=== PATIENT | male | born 1940 | race Caucasian/White ===

== ENCOUNTER 2019-02-04 10:26 | Emergency (ER) | payer MEDICARE, OTHER, SELFPAY ==
[2019-02-04 10:39] VITALS: BP 184/86; PULSE 86; RESP 18; TEMP 36.4; O2SAT 96
--- NOTE | 2019-02-04 11:01 | DI.RAD.S_ITS ---
PROCEDURE: XR CHEST 1V INDICATIONS: chest pain TECHNIQUE: One view of the chest was acquired. COMPARISON: None. FINDINGS: Surgical changes and devices: None. Lungs and pleura: Lungs are clear. No pleural effusions or pneumothorax. Mediastinum: Mediastinal contours appear normal. Heart size is normal. Bones and chest wall: No suspicious bony lesions. Overlying soft tissues appear unremarkable. IMPRESSION: No definite acute cardiopulmonary process is evident. Dictated by: Lonnie Sanders M.D. on 02/04/2019 at 11:02 Approved by: Lonnie Sanders M.D. on 02/04/2019 at 11:03
[2019-02-04 11:02] VITALS: BP 160/85; PULSE 57; RESP 14; O2SAT 96
[2019-02-04 11:09] LABS: Add Manual Diff / Slide Review NO; Basophils Absolute Auto 0 /uL (0-100); Basophils Percent Auto 0.5 % (0-2); Eosinophils Absolute Auto 100 /uL (0-450); Hematocrit 45.1 % (41-53); Hemoglobin 15.6 g/dL (13.5-17.5); Lymphocytes Absolute Auto 700 /uL (1100-4500); Lymphocytes Percent Auto 7.3 % (25-40); Mean Corpuscular HGB Conc 34.7 % (30-36); Mean Corpuscular Hemoglobin 31.7 PG (26-34); Mean Corpuscular Volume 91.2 fL (80-100); Monocytes Absolute Auto 500 /uL (0-900); Neutrophils Absolute Auto 7800 /uL (1500-7000); Neutrophils Percent Auto 86.2 % (50-75); Platelet Count 212 X10^3/uL (150-400); Red Blood Cell Count 4.94 X10^6/uL (4.5-5.9); Red Cell Distribution Width 12.3 % (11.6-14.8)
[2019-02-04 11:14] LABS: INR 0.9 (0.9-1.3); Prothrombin Time 10.3 SECONDS (10.1-12.7)
[2019-02-04 11:17] LABS: PTT Partial Thromboplastin Tim 28 SECONDS (26.4-36.2)
[2019-02-04 11:22] LABS: Alanine Aminotransferase 20 IU/L (21-72); Albumin 4.1 g/dL (3.5-5.0); Albumin Globulin Ratio 1.3 (1.0-2.8); Alkaline Phosphatase 82 U/L (38-126); Aspartate Aminotransferase 29 IU/L (17-59); BUN Creatinine Ratio 18.8 (6-22); Bilirubin Total 1.3 mg/dL (0.2-1.3); Blood Urea Nitrogen 15 mg/dL (9-20); Calcium 9.5 mg/dL (8.4-10.2); Carbon Dioxide 30 mmol/L (22-32); Chloride 101 mmol/L (98-107); Creatine Kinase 63 U/L (55-170); Estimated Glomerular Filt Rate > 60.0 mL/min (>60); Globulin 3.1 g/dL (1.7-4.1); Glucose 109 mg/dL (80-110); Lipase 57 U/L (23-300); Sodium 137 mmol/L (137-145); Total Protein 7.2 g/dL (6.3-8.2)
[2019-02-04 11:27] LABS: HEMOLYSIS 83 (0-50)
[2019-02-04 11:30] VITALS: BP 159/96; PULSE 68; RESP 12; O2SAT 96
--- NOTE | 2019-02-04 11:49 | ED_ITS ---
HPI - Dizziness General Chief Complaint: Dizziness Stated Complaint: dizzy,high blood pressure,'sick' Time Seen by Provider: 02/04/19 11:48 Source: patient Mode of arrival: ambulatory Limitations: no limitations History of Present Illness HPI Narrative: 78-year-old male comes in with complaint of dizziness. Patient states he woke up this morning and was very dizzy. He felt like the world was sort of spinning. He states that he feels off balance and when he got up to let EMS in the door he sort of had to hang onto the wall or bounce around. He denies any vision changes. He has a mild headache that started about an hour ago. His symptoms started several hours before. He has some nausea and vomiting this morning. He does not feel nauseated currently. No chest pain, no shortness of breath or abdominal pain. Sometimes have some lower back discomfort. No numbness, no weakness or difficulty with speech. He had similar symptoms about 4:00 a.m. in the morning a couple nights before and he states he went back to bed and resolved. Today it is better at this time and not as intense as it was this morning. Patient does take Lipitor and takes losartan. He states the losartan he takes 50 mg and sometimes takes 100 mg depending on his pressure. As well as omeprazole. He has had back surgery and no other surgeries. He denies any allergies to medications. No tobacco, he drinks 2 alcoholic drinks daily and no illicit. He lives on [facility] with his who is disabled and Dr. Reed is his primary care physician. Related Data Previous Rx's Medication Instructions Recorded meclizine 25 mg PO QID PRN #14 tab 02/04/19 Allergies Allergy/AdvReac Type Severity Reaction Status Date / Time No Known Drug Allergies Allergy Verified 02/04/19 10:41 Review of Systems Review of Systems ROS Unobtainable: All systems reviewed & are unremarkable except as noted in HPI and below Constitutional Denies chills, Denies fever(s), Reports headache(s) (Mild), Denies lethargy and Denies weakness Eyes Denies change in vision ENT Ears, Nose, Mouth, and Throat: Denies abnormal hearing, Reports vertigo, Denies ear discharge, Denies otalgia, Reports headache(s) (Mild), Denies nasal congestion and Reports disequilibrium Cardiovascular Denies chest pain, Denies diaphoresis, Denies syncope, Denies pedal edema, Denies irregular heart rhythm, Denies lightheadedness, Denies radiating jaw, neck or arm pain, Denies palpitations, Denies dyspnea, Denies dyspnea on exertion and Denies orthopnea Respiratory Denies change in phlegm color, Denies chest congestion, Denies cough, Denies dyspnea and Denies dyspnea on exertion Gastrointestinal Gastrointestinal: Denies abdominal pain, Denies change in bowel habits, Denies diarrhea, Reports nausea and Reports vomiting (Resolved now) Genitourinary Denies hematuria, Denies flank pain, Denies urinary frequency, Denies urinary hesitancy, Denies urinary incontinence and Denies urinary urgency Musculoskeletal Reports back pain (Couple days ago resolved now) and Denies numbness Neurologic Reports as per HPI, Denies abnormal hearing, Denies abnormal movements, Denies abnormal speech, Denies confusion, Reports vertigo, Denies syncope, Reports headache(s) (Mild), Denies lack of coordination, Denies focal weakness, Denies numbness, Denies sensory deficit, Reports disequilibrium and Denies weakness Psychiatric Denies confusion Endocrine Denies palpitations [facility] Medical History (Updated 02/04/19 @ 12:27 by Eliza Grijalva DO) Dyslipidemia (Chronic) GERD (gastroesophageal reflux disease) (Chronic) Hypertension (Chronic) Surgical History History of back surgery (Chronic) Social History Smoking Status: Former smoker Social History (Updated 02/04/19 @ 12:22 by Eliza Grijalva DO) marital status: details: Lives on [facility], cares for disabled . household members: spouse lives independently: Yes Smoking Status: Former smoker alcohol intake: current substance use type: does not use Exam Narrative Exam Narrative: GEN: well nourished, well appearing male, alert and oriented x 3, patient appears to be in no acute distress. HEENT: Atraumatic, pupils are equal round reactive to light, extraocular movements are intact, no rotatory nystagmus Maira-Hallpike patient's symptoms are increased when he sat upright he in noticed it more on the right side than the left, nares are clear, TMs are clear with no fluid, there is no conjunctival pallor. Throat is clear without any exudates, erythema, tonsillar enlargement or uvular deviation, no facial droop. HEART: Regular rate and rhythm without murmur, clicks, rubs. No carotid bruits, pulses are equal in upper and lower extremities LUNGS:Lungs clear to auscultation, no wheezes, rales, crackles, chest moves symmetrically ABD:bowel sounds normal, soft, non-tender, no guarding, rebound, rigidity, no masses noted, no hepatosplenomegaly :No CVA tenderness BACK: No cervical, thoracic or lumbar vertebral point tenderness. Patient has normal range of motion. MSCL: Non-tender, no muscle atrophy, muscles strength 5/5 upper and lower extremities, full range of motion. Normal sensation upper and lower extremities. NEURO:CN 2-12 intact, sensation normal, reflexes 2/4 upper and lower extremitie s. finger nose finger test normal, heel jane test normal. Initial Vital Signs Initial Vital Signs: Vital Signs Temperature 97.6 F 02/04/19 10:39 Pulse Rate 86 02/04/19 10:39 Respiratory Rate 18 02/04/19 10:39 Blood Pressure 184/86 H 02/04/19 10:39 Pulse Oximetry 96 02/04/19 10:39 Scores GCS Flavia coma scale eye opening: Spontaneous Flavia coma scale verbal response: Orientated Flavia coma scale motor response: Obey commands Flavia coma scale total score: 15 NIH Stroke Scale Level of Conciousness: Alert, keenly responsive Ask month/age: Answers both questions correctly. Open/close eyes, close hand: Performs both tasks correctly Best gaze horizontal: Normal Visual blas: No visual loss Facial palsy: Normal symetrical movement Left arm drift: No drift for full 10 sec Right arm drift: No drift for full 10 sec Left leg drift: No drift for full 10 sec Right leg drift: No drift for full 10 sec Limb ataxia: Absent Sensory on face/arms/legs: Normal, no sensory loss Best language: No aphasia, normal Dysarthria: Normal Extinction or inattention: No abnormality Total NIH Stroke scale score: 0 Course Orders Ordered: ED Orders 02/04/19 10:35 EKG-12 Lead Stat EKG-12 Lead Stat 02/04/19 10:50 Complete Blood Count AUTO DIFF Stat Comprehensive Metabolic Panel Stat Lipase Stat Partial Thromboplastin Time Stat Prothrombin Time INR Stat Troponin & CK Cardiac Panel Stat 02/04/19 11:01 XR chest 1V Stat 02/04/19 12:16 CT head/brain wo con Stat Discontinued Medications Meclizine HCl (Antivert) 25 mg PO NOW ONE Stop: 02/04/19 12:17 Last Admin: 02/04/19 12:23 Dose: 25 mg Vital Signs - 8 hr 02/04/19 10:39 02/04/19 11:02 02/04/19 11:30 Temperature 97.6 F Pulse Rate 86 57 L 68 Respiratory Rate 18 14 12 Blood Pressure 184/86 H Blood Pressure [Left Arm] 160/85 H 159/96 H Pulse Oximetry 96 96 96 02/04/19 12:00 02/04/19 12:30 02/04/19 13:00 Temperature Pulse Rate 76 74 71 Respiratory Rate 17 19 18 Blood Pressure Blood Pressure [Left Arm] 152/88 H 154/71 H 165/78 H Pulse Oximetry 97 96 96 MDM - Dizziness Lab Data Attestation: I reviewed the patient's lab results. Result diagrams: 02/04/19 10:50 02/04/19 10:50 Lab Results 02/04/19 02/04/19 02/04/19 Range/Units 10:50 10:50 10:50 WBC 9.0 (4.5-11.0) X10^3/uL RBC 4.94 (4.5-5.9) X10^6/uL Hgb 15.6 (13.5-17.5) g/dL Hct 45.1 (41-53) % MCV 91.2 (80-100) fL MCH 31.7 (26-34) PG MCHC 34.7 (30-36) % RDW 12.3 (11.6-14.8) % Plt Count 212 (150-400) X10^3/uL Neut % (Auto) 86.2 H (50-75) % Lymph % (Auto) 7.3 L (25-40) % Titus % (Auto) 5.0 (3-14) % Eos % (Auto) 1.0 L (2-4) % Baso % (Auto) 0.5 (0-2) % Neut # (Auto) 7800 H (8829-5724) /uL Lymph # (Auto) 700 L (3544-7613) /uL Titus # (Auto) 500 (0-900) /uL Eos # (Auto) 100 (0-450) /uL Baso # (Auto) 0 (0-100) /uL PT 10.3 (10.1-12.7) SECONDS INR 0.9 (0.9-1.3) APTT 28 (26.4-36.2) SECONDS Sodium 137 (137-145) mmol/L Potassium 5.0 (3.4-5.1) mmol/L Chloride 101 (98-107) mmol/L Carbon Dioxide 30 (22-32) mmol/L BUN 15 (9-20) mg/dL Creatinine 0.80 (0.66-1.25) mg/dL Estimated GFR > 60.0 (>60) mL/min BUN/Creatinine Ratio 18.8 (6-22) Glucose 109 (80-110) mg/dL Calcium 9.5 (8.4-10.2) mg/dL Total Bilirubin 1.3 (0.2-1.3) mg/dL AST 29 (17-59) IU/L ALT 20 L (21-72) IU/L Alkaline Phosphatase 82 (38-126) U/L Total Creatine Kinase 63 (55-170) U/L CK-MB (CK-2) TNP CK-MB (CK-2) Rel Index TNP Troponin I 0.020 (0.01-0.034) ng/mL Total Protein 7.2 (6.3-8.2) g/dL Albumin 4.1 (3.5-5.0) g/dL Globulin 3.1 (1.7-4.1) g/dL Albumin/Globulin Ratio 1.3 (1.0-2.8) Lipase 57 (23-300) U/L Imaging Data Chest x-ray: Attestation: I personally reviewed and interpreted this imaging study as lori collins: My impression: nap Radiologist's impression: [address] [address] XRay Report Signed Patient: Jacinto Hickman#: [id number] : 1Acct:[id number] Age/Sex: 78 / MDate of Service: 02/04/19 Loc: ED Accession Number: [id number] Procedure: XR chest 1V Ordering Provider: Eliza Grijalva D.O. PROCEDURE: XR CHEST 1V INDICATIONS: chest pain TECHNIQUE: One view of the chest was acquired. COMPARISON: None. FINDINGS: Surgical changes and devices: None. Lungs and pleura: Lungs are clear. No pleural effusions or pneumothorax. Mediastinum: Mediastinal contours appear normal. Heart size is normal. Bones and chest wall: No suspicious bony lesions. Overlying soft tissues appear unremarkable. IMPRESSION: No definite acute cardiopulmonary process is evident. Dictated by: Lonnie Sanders M.D. on 02/04/2019 at 11:02 Approved by: Lonnie Sanders M.D. on 02/04/2019 at 11:03 CT scan - head: Radiologist's impression: [place] [address] CT Scan Report Signed Patient: Jacinto Hickman#: [id number] : 1940cct:[id number] Age/Sex: 78 / MDate of Service: 02/04/19 Loc: ED Accession Number: [id number] Procedure: CT head/brain wo con Ordering Provider: Eliza Grijalva D.O. PROCEDURE: CT HEAD/BRAIN WO CON INDICATIONS: vertigo symptoms, first episode night, returned tod TECHNIQUE: Noncontrast 4.5 mm thick angled axial sections acquired from the foramen magnum to the vertex, with coronal and sagittal reformats. For radiation dose reduction, the following was used: automated exposure control, adjustment of mA and/or kV according to patient size. COMPARISON: None. FINDINGS: Image quality: Excellent. CSF spaces: Basal cisterns are patent. No extra-axial fluid collections. Ventricles are normal in size and shape. Brain: No midline shift. No intracranial masses or hemorrhage. Edwards-white matter interface is normal. Skull and face: Calvarium and visualized facial bones are intact, without suspicious lesions. Sinuses: Visualized sinuses and mastoids are clear. IMPRESSION: Unremarkable head CT. No acute intracranial hemorrhage. Dictated by: Lonnie Sanders M.D. on 02/04/2019 at 11:38 Approved by: Lonnie Sanders M.D. on 02/04/2019 at 11:39 ECG Data Attestation: I personally reviewed and interpreted this ECG as follows: Prior ECG tracings: not available for review Interpretation: Sinus rhythm with a rate of 73 P are 179 QRS of 106 and QTC of 396. No ST elevation or depression patient has a Q-wave in lead 3. No other changes appreciated. No prior EKG noted. MDM Narrative Medical decision making narrative: Patient does not have any acute symptoms concerning for stroke at this time. He does have vertigo. But his symptoms have improved on after meclizine feel even better. Patient was slightly hypertensive. Discharge Plan Departure Patient Disposition: Home Clinical Impression: Vertigo Discharge Date/Time: 02/04/19 13:41 Interventions: ED Discharge Assessment Last Done: 02/04/19 13:40 Instructions: DI for Vertigo Activity Restrictions/Additional Instructions: Follow-up with primary care in the next 2-3 days call for an appointment. Take medication as prescribed, you may take 1-2 tablets every 6-8 hours as needed for symptoms. This medication can make you sleepy do not drive, perform hazardous activities or make any major decisions while taking it. Return to the emergency department for sudden severe headaches, no vision changes, difficulty with speech, persistent vomiting, new weakness, numbness, passing out, new chest pain or shortness of breath or other new or concerning symptoms. Prescriptions: New meclizine 25 mg tablet 25 mg PO QID PRN (Reason: dizziness) Qty: 14 RF: 0 Referrals: Buddy Mercedes MD [Physician] - Ziyad Reed MD [Primary Care Provider] -
[2019-02-04 12:00] VITALS: BP 152/88; PULSE 76; RESP 17; O2SAT 97
--- NOTE | 2019-02-04 12:16 | DI.CT.S_ITS ---
PROCEDURE: CT HEAD/BRAIN WO CON INDICATIONS: vertigo symptoms, first episode night, returned tod TECHNIQUE: Noncontrast 4.5 mm thick angled axial sections acquired from the foramen magnum to the vertex, with coronal and sagittal reformats. For radiation dose reduction, the following was used: automated exposure control, adjustment of mA and/or kV according to patient size. COMPARISON: None. FINDINGS: Image quality: Excellent. CSF spaces: Basal cisterns are patent. No extra-axial fluid collections. Ventricles are normal in size and shape. Brain: No midline shift. No intracranial masses or hemorrhage. Edwards-white matter interface is normal. Skull and face: Calvarium and visualized facial bones are intact, without suspicious lesions. Sinuses: Visualized sinuses and mastoids are clear. IMPRESSION: Unremarkable head CT. No acute intracranial hemorrhage. Dictated by: Lonnie Sanders M.D. on 02/04/2019 at 11:38 Approved by: Lonnie Sanders M.D. on 02/04/2019 at 11:39
[2019-02-04] MEDS: MECLIZINE HCL 12.5 MG TABLET 25 MG PO (12:23)
[2019-02-04 12:30] VITALS: BP 154/71; PULSE 74; RESP 19; O2SAT 96
[2019-02-04 13:00] VITALS: BP 165/78; PULSE 71; RESP 18; O2SAT 96
--- NOTE | 2019-02-04 13:17 | PC.NURSE ---
Pt ambulated with steady gait and without increased dizziness. Provider aware.
== END 2019-02-04 13:41 | disposition home or self-care (01) ==
PROVIDERS: Emergency Provider Emergency Medicine; PCP Family Medicine
DX: R42 Dizziness and giddiness (principal); I10 Essential (primary) hypertension
CPT/HCPCS: 36591; 70450; 71045; 80053; 82550; 83690; 84484; 85025; 85610; 85730; 93005; 99283; 99285

== ENCOUNTER 2019-11-07 14:10 | Emergency (ER) | payer MEDICARE, OTHER, SELFPAY ==
[2019-11-07 14:18] VITALS: BP 186/89; PULSE 82; RESP 13; TEMP 36.5; O2SAT 97
--- NOTE | 2019-11-07 14:35 | ED_ITS ---
HPI - Abdominal Pain <Issac Christine [facility] - Last Filed: 11/07/19 20:59> General Chief Complaint: Abdominal Pain Stated Complaint: Constipation For 10 Days Time Seen by Provider: 11/07/19 14:13 Source: patient Mode of arrival: Ambulatory Limitations: no limitations History of Present Illness HPI narrative: This is a 79-year-old gentleman, former smoker, who presents to ED with changes in his bowel movements for last 1 month. Patient reports he has been having constipation no normal bowel movements for last 10 days. Patient reports he had taken two doses of OTC Ducolax over the weekend. Patient had bowel movement but it is watery and in light color w/o blood. Patient reports some discomfort in his abdomen denies fever or nausea/vomiting. Patient has decreased solid intake since Wednesday and has been hydrating with mayra miah mostly. Patient denies previous history of constipation, abdominal surgeries, recent bed rest, diet change, taking narcotic medications regularly. Patient's last colonoscopy was 6 years ago and had polyps then and instructed to repeat in 6 years. Related Data Home Medications Medication Instructions Recorded Confirmed aspirin 325 mg PO QPM 11/07/19 11/07/19 atorvastatin 20 mg PO QPM 11/07/19 11/07/19 losartan 50 mg PO BID 11/07/19 11/07/19 omeprazole 20 mg PO BID 11/07/19 11/07/19 Previous Rx's Medication Instructions Recorded magnesium citrate 60 ml PO BID #296 ml 11/07/19 Allergies Allergy/AdvReac Type Severity Reaction Status Date / Time No Known Drug Allergies Allergy Verified 02/04/19 10:41 Review of Systems <Issac Christine [facility] - Last Filed: 11/07/19 20:59> Review of Systems Narrative: General: Denies fever, chills, fatigue, malaise, sweats. HEENT: Denies sinus pain, ear pain, sore throat, difficulty swallowing, dizziness. Respiratory: Denies dyspnea, cough, wheezing, hemoptysis, sputum. Cardiovascular: Denies chest pain, palpitations, orthopnea, edema. Gastrointestinal: See HPI : Denies dysuria, frequency, incontinence, hematuria, urinary retention. Musculoskeletal: Denies weakness, joint pain or bony pain. Skin: Denies rash, skin lesions, or other. Neurologic: Denies weakness, headache, numbness, change in speech, confusion, seizures, incoordination. Psychiatric: No concerning psychosocial issues. 12-point review of systems is negative except for those stated above. Patient History <ARLEN Green - Last Filed: 11/07/19 20:59> Medical History Colon polyps (Acute) Dyslipidemia (Chronic) GERD (gastroesophageal reflux disease) (Chronic) Hypertension (Chronic) Surgical History History of back surgery (Chronic) Social History marital status: details: Lives on [facility], cares for disabled . household members: spouse lives independently: Yes Smoking Status: Former smoker alcohol intake: current substance use type: does not use Smoking Status: Former smoker alcohol intake frequency: 0-2 drinks per day Substance Use Type: does not use Exam <ARLEN Green - Last Filed: 11/07/19 20:59> Narrative Exam Narrative: GEN: Alert, oriented x 3, well appearing and nourished, and in no acute distress. Head: Normal cephalic, atraumatic. No scalp or temporal tenderness, palpable mass or rash. EYES: Pupils are equal, round, and reactive to light and accommodation. Extraocular muscles are intact bilaterally. There is no subconjunctival hemorrhage, exudate and sclera non-icteric. ENT: Hearing grossly intact. Nose without bleeding, purulent discharge or deviation. Facial sinuses nontender to palpate. Mucous membrane moist, no mucosal lesion. Throat without erythema, tonsillar hypertrophy or exudate. Uvula in midline, airway patent. Neck: Trachea in midline. No JVD, non-tender without lymphadenopathy. No masses or thyroid megaly. Supple, non-tender and no meningeal signs. CARDIAC: Normal regular rate and rhythm without murmurs, gallops, or rubs. No chest wall tenderness. No peripheral edema, cyanosis or pallor. Capillary refill is less than 2 seconds. RESPIRATORY: Lungs are clear to auscultate bilaterally. No cough, wheezes, rales, or rhonchi. No stridor, respiratory distress, increase work of breathing, or accessary muscle used. ABD: Abdomen soft, mild tenderness to palpate and non-distended. No guarding or rebound tenderness to palpate. Bowel sounds are normal in all 4 quadrants. There is no palpable masses or organomegaly. Empty rectal vault and no stool felt during rectal exam. EXT: Full painless ROM of all extremities with no loss of sensation, strength, effusion or edema. SKIN: Warm, dry, normal color for patient. No erythema, lesions or rash over visible areas. BACK: Nontender without deformity or crepitance. No flank tenderness. NEUROLOGICAL: Alert and oriented to place, time and person. Sensation and motor function intact bilaterally. No facial droops, dysphasia. PSYCHIATRIC: Good judgement and reason, without hallucinations, abnormal affect or abnormal behaviors during the examination. Initial Vital Signs Initial Vital Signs: Vital Signs Temperature 97.7 F 11/07/19 14:18 Pulse Rate 82 11/07/19 14:18 Respiratory Rate 13 11/07/19 14:18 Blood Pressure 186/89 H 11/07/19 14:18 Pulse Oximetry 97 11/07/19 14:18 <Sophy Mullins MD - Last Filed: 11/10/19 09:09> Initial Vital Signs Initial Vital Signs: Vital Signs Temperature 97.7 F 11/07/19 14:18 Pulse Rate 82 11/07/19 14:18 Respiratory Rate 13 11/07/19 14:18 Blood Pressure 186/89 H 11/07/19 14:18 Pulse Oximetry 97 11/07/19 14:18 Scores <ARLEN Green - Last Filed: 11/07/19 20:59> GCS [place] coma scale eye opening: Spontaneous [place] coma scale verbal response: Orientated [place] coma scale motor response: Obey commands [place] coma scale total score: 15 Course <ARLEN Green - Last Filed: 11/07/19 20:59> Orders Ordered: Discontinued Medications Sodium Chloride (Normal Saline 0.9%) 1,000 mls @ 150 mls/hr IV CONT RENÉE Last Infusion: 11/07/19 17:39 Dose: 0 mls/hr Documented by: Admin: 11/07/19 15:49 Dose: 150 mls/hr Documented by: BTONER Sodium Biphosphate/Sodium Phosphate (Fleet Enema) 1 each [place] NOW ONE Stop: 11/07/19 14:45 Last Admin: 11/07/19 15:06 Dose: 1 each Documented by: BTONER Vital Signs Vital signs: Vital Signs - 8 hr 11/07/19 14:18 11/07/19 15:45 Temperature 97.7 F Pulse Rate 82 63 Respiratory Rate 13 15 Blood Pressure 186/89 H Blood Pressure [Left Arm] 169/79 H Pulse Oximetry 97 96 <Sophy Mullins MD - Last Filed: 11/10/19 09:09> Orders Ordered: Discontinued Medications Sodium Chloride (Normal Saline 0.9%) 1,000 mls @ 150 mls/hr IV CONT RENÉE Last Infusion: 11/07/19 17:39 Dose: 0 mls/hr Documented by: Admin: 11/07/19 15:49 Dose: 150 mls/hr Documented by: BTONER Sodium Biphosphate/Sodium Phosphate (Fleet Enema) 1 each [place] NOW ONE Stop: 11/07/19 14:45 Last Admin: 11/07/19 15:06 Dose: 1 each Documented by: BTONER Vital Signs Vital signs: Vital Signs - 8 hr 11/07/19 14:18 11/07/19 15:45 Temperature 97.7 F Pulse Rate 82 63 Respiratory Rate 13 15 Blood Pressure 186/89 H Blood Pressure [Left Arm] 169/79 H Pulse Oximetry 97 96 MDM - Abdominal Pain <ARLEN Green - Last Filed: 11/07/19 20:59> Differential Diagnosis Differential diagnosis: Likely abdominal pain, constipation, small bowel obstruction and other (Large for obstruction) Medical Records Attestation: I reviewed the patient's medical records. Lab Data Attestation: I reviewed the patient's lab results. Result diagrams: 11/07/19 15:40 11/07/19 15:40 Labs: Lab Results 11/07/19 11/07/19 Range/Units 15:40 15:40 WBC 7.8 (4.5-11.0) X10^3/uL RBC 5.03 (4.5-5.9) X10^6/uL Hgb 16.0 (13.5-17.5) g/dL Hct 45.9 (41-53) % MCV 91.4 (80-100) fL MCH 31.8 (26-34) PG MCHC 34.8 (30-36) % RDW 12.4 (11.6-14.8) % Plt Count 240 (150-400) X10^3/uL Neut % (Auto) 70.6 (50-75) % Lymph % (Auto) 16.7 L (25-40) % [place] % (Auto) 8.6 (3-14) % Eos % (Auto) 3.3 (2-4) % Baso % (Auto) 0.8 (0-2) % Neut # (Auto) 5500 (6350-1894) /uL Lymph # (Auto) 1300 (3053-0795) /uL [place] # (Auto) 700 (0-900) /uL Eos # (Auto) 300 (0-450) /uL Baso # (Auto) 100 (0-100) /uL Sodium 138 (137-145) mmol/L Potassium 4.7 (3.4-5.1) mmol/L Chloride 101 (98-107) mmol/L Carbon Dioxide 30 (22-32) mmol/L BUN 13 (9-20) mg/dL Creatinine 1.00 (0.66-1.25) mg/dL Estimated GFR > 60.0 (>60) mL/min BUN/Creatinine Ratio 13.0 (6-22) Glucose 91 (80-110) mg/dL Calcium 9.4 (8.4-10.2) mg/dL Total Bilirubin 1.3 (0.2-1.3) mg/dL AST 28 (17-59) IU/L ALT 20 (<50) IU/L Alkaline Phosphatase 79 (38-126) U/L Total Protein 7.2 (6.3-8.2) g/dL Albumin 3.9 (3.5-5.0) g/dL Globulin 3.3 (1.7-4.1) g/dL Albumin/Globulin Ratio 1.2 (1.0-2.8) Lipase 50 (23-300) U/L Imaging Data XR-AAS: Radiologist's Impression: Jacinto Hickman 79 M [address] [address] XRay Report Signed Patient: Jacinto HickmanMR#: [id number] : 1Acct:[id number] Age/Sex: 79 / MDate of Service: 11/07/19 Loc: ED Accession Number: [id number] Procedure: XR acute abdomen series Ordering Provider: Issac Christine PROCEDURE: XR ACUTE ABDOMEN SERIES INDICATIONS: constipation for 10 days TECHNIQUE: One view chest and two views of the abdomen were acquired. COMPARISON: None. FINDINGS: Surgical changes and devices: None. Chest: Lungs are clear. Heart size is normal. No pleural effusions. No pneumoperitoneum. Abdomen: Air filled bowel loops are identified demonstrating scattered air-fluid levels. However, the small bowel loops do not appear to be significantly dilated. The largest small bowel loop appears to measure up to approximately 2.3 cm. The majority of the air is evident within the colon. The amount of stool within the colon is less than normal. No suspicious calcifications. Visualized solid organ contours appear normal. Bones: No suspicious bony lesions. IMPRESSION: 1. No bowel obstruction. No significant stool is seen within the colon. 2. No acute cardiopulmonary process is evident. Dictated by: Lonnie Sanders M.D. on 11/07/2019 at 14:10 Approved by: Lonnie Sanders M.D. on 11/07/2019 at 14:11 CT scan - abdomen/pelvis: Radiologist's Impression: [place] [address] CT Scan Report Signed Patient: Jacinto Hickman#: [id number] : 1At:[id number] Age/Sex: 79 / MDate of Service: 11/07/19 Loc: ED Accession Number: [id number] Procedure: CT abdomen pelvis w con Ordering Provider: Issac Christine [facility] PROCEDURE: CT ABDOMEN PELVIS W CON INDICATIONS: no normal BM for 10 days and abd pain TECHNIQUE: After the administration of intravenous contrast, 5 mm thick sections acquired from the diaphragm to the symphysis. 5 mm coronal and sagittal reformats were acquired. For radiation dose reduction, the following was used: automated exposure control, adjustment of mA and/or kV according to patient size. COMPARISON: None. FINDINGS: Image quality: Excellent. ABDOMEN: Lung bases: Lung bases are clear. Heart size is normal. Solid organs: Liver is normal in size and enhancement. Gallbladder is unremarkable. Biliary system is non dilated. Pancreas enhances normally. Spleen is normal in size and enhancement. No adrenal nodules. Kidneys demonstrate normal size and enhancement, without hydronephrosis. A low density cyst is present within the upper pole of the right kidney. Peritoneum and bowel: Bowel loops demonstrate normal wall thickness and caliber. The appendix is thin walled and gas filled. There are scattered sigmoid diverticula. No evidence for diverticulitis. No free fluid or air. Nodes and vessels: No retroperitoneal or mesenteric adenopathy by size criteria. Aorta and inferior vena cava are normal in size. There are dense atheromatous calcifications throughout the aorta and iliac arteries bilaterally. Miscellaneous: No ventral hernias. PELVIS: Genitourinary: Bladder wall thickness is normal. There is a small fluid filled posterior right bladder diverticulum. Miscellaneous: No inguinal hernias or adenopathy. Bones: No suspicious bony lesions. No vertebral body compression fractures. IMPRESSION: 1. No bowel dilatation to suggest obstruction or ileus. The small bowel and colo n demonstrate normal caliber and wall thickness throughout. The colon is predominantly gas-filled. 2. No acute intra-abdominal findings. Normal appendix. Diverticulosis. No acute diverticulitis. 3. Dense aortic atherosclerosis. Dictated by: Zaira Johnston M.D. on 11/07/2019 at 16:25 Approved by: Zaira Johnston M.D. on 11/07/2019 at 16:29 MDM Narrative Medical decision making narrative: This is a 79-year-old gentleman who presents to ED with constipation symptoms for 10 days. He was referred from [facility] by Dr. Reed with CD of 2 views of Abdominal xrays. Patient reports he has been having small, loose and light color stools without normal bowel movements for last 10 days. Patient has not been eating well for last 4 days but denies vomiting, chills, nausea. Patient did not endorse significant abdominal pain but just feel little uncomfortable. Patient does not have history of constipation. Patient denies recent diet changes or level of activities. There was no stool felt during ring rectal exam in rectal vault. Patient was given Fleet enema during this. We were unable to view the CD of x-ray test on abdomen. AAS indicates no bowel obstruction or significant stool in the colon but had air-filled bowel loops demonstrating scattered air-fluid levels without small bowel loop dilation. Patient states he has been drinking lots of carbonated sodas to help with constipation symptoms last 4 days. Patient's abdominal exam was benign. CT of abdomen and pelvis obtained and shows no bowel dilation indicating obstruction or ileus. The colon is predominantly filled with gas with normal appendix. There is no acute diverticulitis. CBC and BMP, lipase were all unremarkable. Patient provided with magnesium citrate for his symptoms and advised to use twice a day for over 2 days for gentler effect. Return precautions were discussed with the patient and advised to follow up with PCP in 2-3 days. Patient verbalized understanding and agreement with treatment plan. <Sophy Mullins MD - Last Filed: 11/10/19 09:09> Lab Data Labs: Lab Results 11/07/19 11/07/19 Range/Units 15:40 15:40 WBC 7.8 (4.5-11.0) X10^3/uL RBC 5.03 (4.5-5.9) X10^6/uL Hgb 16.0 (13.5-17.5) g/dL Hct 45.9 (41-53) % MCV 91.4 (80-100) fL MCH 31.8 (26-34) PG MCHC 34.8 (30-36) % RDW 12.4 (11.6-14.8) % Plt Count 240 (150-400) X10^3/uL Neut % (Auto) 70.6 (50-75) % Lymph % (Auto) 16.7 L (25-40) % [place] % (Auto) 8.6 (3-14) % Eos % (Auto) 3.3 (2-4) % Baso % (Auto) 0.8 (0-2) % Neut # (Auto) 5500 (6818-7113) /uL Lymph # (Auto) 1300 (8140-5729) /uL [place] # (Auto) 700 (0-900) /uL Eos # (Auto) 300 (0-450) /uL Baso # (Auto) 100 (0-100) /uL Sodium 138 (137-145) mmol/L Potassium 4.7 (3.4-5.1) mmol/L Chloride 101 (98-107) mmol/L Carbon Dioxide 30 (22-32) mmol/L BUN 13 (9-20) mg/dL Creatinine 1.00 (0.66-1.25) mg/dL Estimated GFR > 60.0 (>60) mL/min BUN/Creatinine Ratio 13.0 (6-22) Glucose 91 (80-110) mg/dL Calcium 9.4 (8.4-10.2) mg/dL Total Bilirubin 1.3 (0.2-1.3) mg/dL AST 28 (17-59) IU/L ALT 20 (<50) IU/L Alkaline Phosphatase 79 (38-126) U/L Total Protein 7.2 (6.3-8.2) g/dL Albumin 3.9 (3.5-5.0) g/dL Globulin 3.3 (1.7-4.1) g/dL Albumin/Globulin Ratio 1.2 (1.0-2.8) Lipase 50 (23-300) U/L Discharge Plan Departure Patient Disposition: Home Clinical Impression: Abdominal pain Qualifiers: Abdominal location: generalized Qualified Code(s): R10.84 - Generalized abdominal pain Constipation, unspecified Qualifiers: Constipation type: unspecified constipation type Qualified Code(s): K59.00 - Constipation, unspecified Discharge Date/Time: 11/07/19 17:42 Activity Restrictions/Additional Instructions: You have been diagnosed with [generalized abdominal discomfort and no bowel movements for 10 days. Your blood test CBC and chemistries were unremarkable. X-ray and CT of abdomen and pelvis indicates no bowel obstruction, no acute intra-abdominal findings with normal appendix, no diverticulitis/diverticulosis and the colon is predominently gas-filled and not become amount of stools seen in colon.]. What to do: *Take your medications as directed. Please start taking magnesium citrate twice a day over 1-2 days. This will help moving her bowels. *Follow up with your primary care provider in 2-3 days, call for an appointment. Let them know you were seen in the ED and that we asked you to be seen in follow up. *Return to ED if you have any new, worsening, or concerning symptoms, such as [fever, increasing pain, chest pain, breathing difficulty, unable to tolerate fluids, or any acute concerns]. Prescriptions: New magnesium citrate Solution 60 ml PO BID Qty: 296 RF: 0 No Action losartan 50 mg tablet 50 mg PO BID RF: 0 atorvastatin 20 mg tablet 20 mg PO QPM RF: 0 aspirin 325 mg Tablet 325 mg PO QPM RF: 0 omeprazole 20 mg capsule,delayed release(DR/EC) 20 mg PO BID RF: 0 Referrals: Ziyad Reed MD [Primary Care Provider] -
--- NOTE | 2019-11-07 14:39 | DI.RAD.S_ITS ---
PROCEDURE: XR ACUTE ABDOMEN SERIES INDICATIONS: constipation for 10 days TECHNIQUE: One view chest and two views of the abdomen were acquired. COMPARISON: None. FINDINGS: Surgical changes and devices: None. Chest: Lungs are clear. Heart size is normal. No pleural effusions. No pneumoperitoneum. Abdomen: Air filled bowel loops are identified demonstrating scattered air-fluid levels. However, the small bowel loops do not appear to be significantly dilated. The largest small bowel loop appears to measure up to approximately 2.3 cm. The majority of the air is evident within the colon. The amount of stool within the colon is less than normal. No suspicious calcifications. Visualized solid organ contours appear normal. Bones: No suspicious bony lesions. IMPRESSION: 1. No bowel obstruction. No significant stool is seen within the colon. 2. No acute cardiopulmonary process is evident. Dictated by: Lonnie Sanders M.D. on 11/07/2019 at 14:10 Approved by: Lonnie Sanders M.D. on 11/07/2019 at 14:11
[2019-11-07] MEDS: FLEETS ENEMA 1 EACH PR (15:06)
--- NOTE | 2019-11-07 15:38 | DI.CT.S_ITS ---
PROCEDURE: CT ABDOMEN PELVIS W CON INDICATIONS: no normal BM for 10 days and abd pain TECHNIQUE: After the administration of intravenous contrast, 5 mm thick sections acquired from the diaphragm to the symphysis. 5 mm coronal and sagittal reformats were acquired. For radiation dose reduction, the following was used: automated exposure control, adjustment of mA and/or kV according to patient size. COMPARISON: None. FINDINGS: Image quality: Excellent. ABDOMEN: Lung bases: Lung bases are clear. Heart size is normal. Solid organs: Liver is normal in size and enhancement. Gallbladder is unremarkable. Biliary system is non dilated. Pancreas enhances normally. Spleen is normal in size and enhancement. No adrenal nodules. Kidneys demonstrate normal size and enhancement, without hydronephrosis. A low density cyst is present within the upper pole of the right kidney. Peritoneum and bowel: Bowel loops demonstrate normal wall thickness and caliber. The appendix is thin walled and gas filled. There are scattered sigmoid diverticula. No evidence for diverticulitis. No free fluid or air. Nodes and vessels: No retroperitoneal or mesenteric adenopathy by size criteria. Aorta and inferior vena cava are normal in size. There are dense atheromatous calcifications throughout the aorta and iliac arteries bilaterally. Miscellaneous: No ventral hernias. PELVIS: Genitourinary: Bladder wall thickness is normal. There is a small fluid filled posterior right bladder diverticulum. Miscellaneous: No inguinal hernias or adenopathy. Bones: No suspicious bony lesions. No vertebral body compression fractures. IMPRESSION: 1. No bowel dilatation to suggest obstruction or ileus. The small bowel and colon demonstrate normal caliber and wall thickness throughout. The colon is predominantly gas-filled. 2. No acute intra-abdominal findings. Normal appendix. Diverticulosis. No acute diverticulitis. 3. Dense aortic atherosclerosis. Dictated by: Zaira Johnston M.D. on 11/07/2019 at 16:25 Approved by: Zaira Johnston M.D. on 11/07/2019 at 16:29
[2019-11-07 15:45] VITALS: BP 169/79; PULSE 63; RESP 15; O2SAT 96
[2019-11-07 15:48] LABS: Add Manual Diff / Slide Review NO; Basophils Absolute Auto 100 /uL (0-100); Basophils Percent Auto 0.8 % (0-2); Eosinophils Absolute Auto 300 /uL (0-450); Eosinophils Percent Auto 3.3 % (2-4); Hematocrit 45.9 % (41-53); Lymphocytes Absolute Auto 1300 /uL (1100-4500); Lymphocytes Percent Auto 16.7 % (25-40); Mean Corpuscular HGB Conc 34.8 % (30-36); Mean Corpuscular Hemoglobin 31.8 PG (26-34); Mean Corpuscular Volume 91.4 fL (80-100); Monocytes Absolute Auto 700 /uL (0-900); Monocytes Percent Auto 8.6 % (3-14); Neutrophils Absolute Auto 5500 /uL (1500-7000); Neutrophils Percent Auto 70.6 % (50-75); Platelet Count 240 X10^3/uL (150-400); Red Blood Cell Count 5.03 X10^6/uL (4.5-5.9); Red Cell Distribution Width 12.4 % (11.6-14.8); White Blood Cell Count 7.8 X10^3/uL (4.5-11.0)
[2019-11-07] MEDS: SODIUM CHLORIDE 0.9% 1,000 ML 150 ML IV (15:49)
[2019-11-07 15:58] LABS: Alanine Aminotransferase 20 IU/L (<50); Albumin 3.9 g/dL (3.5-5.0); Albumin Globulin Ratio 1.2 (1.0-2.8); Alkaline Phosphatase 79 U/L (38-126); Aspartate Aminotransferase 28 IU/L (17-59); Bilirubin Total 1.3 mg/dL (0.2-1.3); Blood Urea Nitrogen 13 mg/dL (9-20); Calcium 9.4 mg/dL (8.4-10.2); Carbon Dioxide 30 mmol/L (22-32); Chloride 101 mmol/L (98-107); Estimated Glomerular Filt Rate > 60.0 mL/min (>60); Globulin 3.3 g/dL (1.7-4.1); Glucose 91 mg/dL (80-110); HEMOLYSIS 17 (0-50); Lipase 50 U/L (23-300); Potassium 4.7 mmol/L (3.4-5.1); Sodium 138 mmol/L (137-145); Total Protein 7.2 g/dL (6.3-8.2)
--- NOTE | 2019-11-07 16:02 | PC.NURSE ---
patient has spoken with dr a few times over the 10 days for guidance with the constipation.
== END 2019-11-07 17:42 | disposition home or self-care (01) ==
PROVIDERS: Emergency Provider Nurse Practitioner Family; PCP Family Medicine
DX: R10.84 Generalized abdominal pain (principal); K59.00 Constipation, unspecified
CPT/HCPCS: 36415; 74022; 74177; 80053; 83690; 85025; 96360; 96361; 99284; 99285

== ENCOUNTER → 2020-03-14 10:55 | Outpatient (CLI) | payer MEDICARE, OTHER, SELFPAY ==
--- NOTE | 2020-03-14 | DI.CT.S_ITS ---
PROCEDURE: CT HEAD/BRAIN WO CON INDICATIONS: HEADACHE TECHNIQUE: Noncontrast 4.5 mm thick angled axial sections acquired from the foramen magnum to the vertex, with coronal and sagittal reformats. For radiation dose reduction, the following was used: automated exposure control, adjustment of mA and/or kV according to patient size. COMPARISON: [facility], CT, CT HEAD/BRAIN WO CON, 02/04/2019, 12:18. FINDINGS: Image quality: Excellent. CSF spaces: Basal cisterns are patent. No extra-axial fluid collections. The ventricles are symmetric in size and shape. Brain: No intracranial bleeds or masses. There is cerebral volume loss for age, with resultant ventricular and sulcal prominence. There are periventricular and deep white matter chronic small vessel ischemic changes. There is intracranial internal carotid artery and vertebral artery atherosclerosis. Skull and face: Calvarium and visualized facial bones appear intact, without suspicious lesions. Sinuses: Visualized sinuses and mastoids are clear. IMPRESSION: 1. No acute intracranial disease process. 2. No intracranial hemorrhage. 3. No abnormal intracranial mass or mass effect. 4. Mild, diffuse cerebral volume loss. 5. Mild periventricular and subcortical white matter chronic microvascular ischemic change. Dictated by: Hollie Holloway MD, PhD on 03/14/2020 at 13:34 Approved by: Hollie Holloway MD, PhD on 03/14/2020 at 13:36
== END ==
PROVIDERS: PCP Family Medicine; Referring Provider Family Medicine; Visit Provider Family Medicine
DX: R51 Headache (principal)
CPT/HCPCS: 70450

== ENCOUNTER → 2021-08-12 09:49 | Outpatient (CLI) | payer MEDICARE, OTHER, SELFPAY ==
[2021-08-12 20:17] LABS: Hemoglobin A1C% w Est Avg Glu 5.7 % (4.0-6.0)
[2021-08-12 20:26] LABS: Add Manual Diff / Slide Review NO; Basophils Absolute Auto 0 /uL (0-100); Basophils Percent Auto 0.6 % (0-2); Eosinophils Absolute Auto 300 /uL (0-450); Eosinophils Percent Auto 5.1 % (2-4); Hematocrit 44.4 % (41-53); Lymphocytes Absolute Auto 1100 /uL (1100-4500); Lymphocytes Percent Auto 18.2 % (25-40); Mean Corpuscular HGB Conc 33.9 % (30-36); Mean Corpuscular Hemoglobin 31.6 PG (26-34); Mean Corpuscular Volume 93.4 fL (80-100); Monocytes Absolute Auto 600 /uL (0-900); Monocytes Percent Auto 10.8 % (3-14); Neutrophils Absolute Auto 3800 /uL (1500-7000); Neutrophils Percent Auto 65.3 % (50-75); Platelet Count 242 X10^3/uL (150-400); Red Blood Cell Count 4.76 X10^6/uL (4.5-5.9); Red Cell Distribution Width 12.8 % (11.6-14.8); White Blood Cell Count 5.8 X10^3/uL (4.5-11.0)
[2021-08-12 20:57] LABS: Alanine Aminotransferase 24 IU/L (<50); Albumin 3.7 g/dL (3.5-5.0); Albumin Globulin Ratio 1.4 (1.0-2.8); Alkaline Phosphatase 76 U/L (38-126); Aspartate Aminotransferase 30 IU/L (17-59); BUN Creatinine Ratio 17.6 (6-22); Bilirubin Total 1.1 mg/dL (0.2-1.3); Blood Urea Nitrogen 15 mg/dL (9-20); Calcium 9.5 mg/dL (8.4-10.2); Carbon Dioxide 31 mmol/L (22-32); Chloride 103 mmol/L (98-107); Estimated Glomerular Filt Rate > 60.0 mL/min (>60); Globulin 2.7 g/dL (1.7-4.1); Glucose 97 mg/dL (80-110); HEMOLYSIS < 15 (0-50); Potassium 4.9 mmol/L (3.4-5.1); Sodium 138 mmol/L (137-145); Total Protein 6.4 g/dL (6.3-8.2)
== END ==
PROVIDERS: PCP Family Medicine; Referring Provider Family Medicine; Visit Provider Family Medicine
DX: R73.03 Prediabetes (principal); I10 Essential (primary) hypertension
CPT/HCPCS: 80053; 83036; 85025

== ENCOUNTER → 2022-05-21 10:24 | Outpatient (CLI) | payer MEDICARE, OTHER, SELFPAY ==
[2022-05-21 19:18] LABS: Add Manual Diff / Slide Review NO; Basophils Absolute Auto 0 /uL (0-100); Basophils Percent Auto 0.6 % (0-2); Eosinophils Absolute Auto 300 /uL (0-450); Eosinophils Percent Auto 4.5 % (2-4); Hematocrit 46.8 % (41-53); Hemoglobin 15.9 g/dL (13.5-17.5); Lymphocytes Absolute Auto 1300 /uL (1100-4500); Lymphocytes Percent Auto 17.1 % (25-40); Mean Corpuscular HGB Conc 33.9 % (30-36); Mean Corpuscular Hemoglobin 31.9 PG (26-34); Mean Corpuscular Volume 93.9 fL (80-100); Monocytes Absolute Auto 600 /uL (0-900); Monocytes Percent Auto 7.7 % (3-14); Neutrophils Absolute Auto 5300 /uL (1500-7000); Neutrophils Percent Auto 70.1 % (50-75); Platelet Count 246 X10^3/uL (150-400); Red Blood Cell Count 4.98 X10^6/uL (4.5-5.9); Red Cell Distribution Width 12.7 % (11.6-14.8); White Blood Cell Count 7.5 X10^3/uL (4.5-11.0)
[2022-05-21 19:38] LABS: Alanine Aminotransferase 20 IU/L (<50); Albumin 3.7 g/dL (3.5-5.0); Albumin Globulin Ratio 1.2 (1.0-2.8); Alkaline Phosphatase 88 U/L (38-126); Amylase 51 U/L (30-110); Aspartate Aminotransferase 27 IU/L (17-59); BUN Creatinine Ratio 12.8 (6-22); Bilirubin Total 1.1 mg/dL (0.2-1.3); Blood Urea Nitrogen 11 mg/dL (9-20); C-Reactive Protein Quant < 0.5 mg/dL (<1.0); Calcium 9.5 mg/dL (8.4-10.2); Carbon Dioxide 32 mmol/L (22-32); Chloride 101 mmol/L (98-107); Estimated Glomerular Filt Rate > 60 mL/min (>60); Globulin 3.1 g/dL (1.7-4.1); Glucose 98 mg/dL (80-110); HEMOLYSIS < 15 (0-50); Lipase 80 U/L (23-300); Potassium 4.6 mmol/L (3.4-5.1); Sodium 138 mmol/L (137-145); Total Protein 6.8 g/dL (6.3-8.2)
[2022-05-21 19:41] LABS: Erythrocyte Sedimentation Rate 16 MM/HR (0-15)
== END ==
PROVIDERS: PCP Family Medicine; Visit Provider Physician Assistant Medical
DX: R39.89 Other symptoms and signs involving the genitourinary system (principal); R07.89 Other chest pain; R10.11 Right upper quadrant pain; R19.4 Change in bowel habit
CPT/HCPCS: 80053; 82150; 83690; 85025; 85651; 86140

== ENCOUNTER → 2022-05-28 08:08 | Outpatient (CLI) | payer MEDICARE, OTHER, SELFPAY ==
[2022-05-29 03:14] LABS: Erythrocyte Sedimentation Rate 10 MM/HR (0-15)
[2022-05-29 03:54] LABS: Appearance Urine UA CLEAR; Bilirubin Urine UA NEGATIVE (NEGATIVE); Color Urine UA YELLOW; Glucose Urine UA NEGATIVE (Negative); Ketones Urine UA NEGATIVE (NEGATIVE); Leukocyte Esterase Urine UA NEGATIVE (NEGATIVE); Nitrite Urine UA NEGATIVE (Negative); Occult Blood Urine UA NEGATIVE (Negative); Protein Urine UA NEGATIVE (Negative); Specific Gravity Urine UA <=1.005 (1.000-1.035); Urobilinogen Urine UA 0.2 E.U./dL (0.2); pH Urine UA 6.5 (4.5-8.0)
[2022-05-29 04:04] LABS: Bacteria Urine None Seen; Culture Indicated Urine Cult Not Indicated; RBC Urine None Seen (0-5/HPF); WBC Urine None Seen (0-5/HPF)
[2022-05-29 04:38] LABS: C-Reactive Protein Quant < 0.5 mg/dL (<1.0); Cholesterol 201 mg/dL (140-199); HDL Cholesterol 48 mg/dL (40-60); LDL Cholesterol Calculated 113 mg/dL (<100); Triglycerides 198 mg/dL (35-150)
== END ==
PROVIDERS: PCP Family Medicine; Visit Provider Physician Assistant Medical
DX: E78.00 Pure hypercholesterolemia, unspecified (principal); R07.89 Other chest pain; R10.11 Right upper quadrant pain; R70.0 Elevated erythrocyte sedimentation rate
CPT/HCPCS: 80061; 81001; 85651; 86140

== ENCOUNTER → 2022-08-21 10:43 | Outpatient (CLI) | payer MEDICARE, OTHER, SELFPAY ==
[2022-08-21 11:50] LABS: Add Manual Diff / Slide Review NO; Basophils Absolute Auto 0 /uL (0-100); Basophils Percent Auto 0.5 % (0-2); Eosinophils Absolute Auto 300 /uL (0-450); Eosinophils Percent Auto 4.6 % (2-4); Hematocrit 43.7 % (41-53); Hemoglobin 14.9 g/dL (13.5-17.5); Lymphocytes Absolute Auto 1100 /uL (1100-4500); Lymphocytes Percent Auto 15.4 % (25-40); Mean Corpuscular HGB Conc 34.2 % (30-36); Mean Corpuscular Hemoglobin 31.6 PG (26-34); Mean Corpuscular Volume 92.4 fL (80-100); Monocytes Absolute Auto 600 /uL (0-900); Monocytes Percent Auto 7.7 % (3-14); Neutrophils Absolute Auto 5300 /uL (1500-7000); Neutrophils Percent Auto 71.8 % (50-75); Platelet Count 238 X10^3/uL (150-400); Red Blood Cell Count 4.73 X10^6/uL (4.5-5.9); Red Cell Distribution Width 12.4 % (11.6-14.8); White Blood Cell Count 7.4 X10^3/uL (4.5-11.0)
[2022-08-21 12:33] LABS: Alanine Aminotransferase 16 IU/L (<50); Albumin 3.7 g/dL (3.5-5.0); Albumin Globulin Ratio 1.2 (1.0-2.8); Alkaline Phosphatase 111 U/L (38-126); Aspartate Aminotransferase 21 IU/L (17-59); BUN Creatinine Ratio 15.4 (6-22); Blood Urea Nitrogen 14 mg/dL (9-20); Carbon Dioxide 28 mmol/L (22-32); Chloride 106 mmol/L (98-107); Estimated Glomerular Filt Rate > 60 mL/min (>60); Glucose 106 mg/dL (80-110); HEMOLYSIS < 15 (0-50); Potassium 4.9 mmol/L (3.4-5.1); Sodium 140 mmol/L (137-145); Total Protein 6.7 g/dL (6.3-8.2)
[2022-08-21 12:39] LABS: NT-proBNP (BNP-Adult 18+) 144 pg/mL (<450)
== END ==
PROVIDERS: Referring Provider Physician Assistant; Visit Provider Physician Assistant
DX: R06.02 Shortness of breath (principal); R39.89 Other symptoms and signs involving the genitourinary system; I10 Essential (primary) hypertension; Z79.899 Other long term (current) drug therapy
CPT/HCPCS: 36415; 80053; 83880; 85025

== ENCOUNTER → 2022-09-10 13:27 | Outpatient (CLI) | payer MEDICARE, OTHER, SELFPAY ==
--- NOTE | 2022-09-10 13:29 | DI.NM.S_ITS ---
PROCEDURE: NM [facility] PERF SPECT REST & STR Rest and exercise myocardial perfusion SPECT with gated imaging and ejection fraction RADIOPHARMACEUTICAL: 26.1 mCi Tc-99m sestamibi IV at rest and 27 mCi Tc-99m sestamibi IV at peak exercise. A two day-protocol was performed. INDICATIONS: Shortness of breath dyspnea on exertion TECHNIQUE: Radiopharmaceutical was injected at peak stress test, and also at rest. SPECT images were obtained. SPECT myocardial perfusion images were displayed in short axis, horizontal long axis, and vertical long axis views. Gated images were reviewed using [email or web address] software. COMPARISON: None. CARDIAC STRESS: A standard Jose treadmill exercise tolerance test was performed by the patient under the supervision of an attending staff. The patient exercised for 7 minutes and 3 seconds; functional aerobic impairment (MADELINE) is -44%. Hemodynamic data: There is normal blood pressure and heart rate response to exercise stress. Patient achieved 89% of maximum predicted heart rate at peak exercise. Symptoms: Patient denied chest pain during exercise. EKG: No diagnostic EKG changes of ischemia; frequent PVCs during recovery. FINDINGS: Raw data: There is good myocardial labeling by radiotracer. No significant motion artifacts. Left ventricle function: Gated images demonstrate normal left ventricle wall thickening. No segmental wall motion abnormality. No transient ischemic dilation; TID is 1.07 (normal less than 1.3). The left ventricle resting end-diastolic volume is 79 mL. Left ventricle stress ejection fraction is 73%; normal values are above 45%. Myocardial perfusion: Mildly intense fixed apical defect that resolves with prone imaging, suggesting apical thinning artifact. No ischemia and no definite infarction. IMPRESSION: Low risk, normal treadmill nuclear stress test. 1) Mildly intense fixed apical defect that resolves with prone imaging, suggesting apical thinning artifact. No ischemia and no definite infarction. 2) Normal left ventricular size, thickness, and systolic function (EF post stress 73%). 3) No diagnostic ST changes with exercise or during recovery. 4) Frequent PVCs during recovery. 5) No angina during the study. 6) Very good exercise tolerance (10.1METs, MADELINE -44%). Target heart rate achieved. Appropriate BP response to exercise. 7) No prior nuclear stress test available for comparison. Dictated by: Juan J Rodríguez MD on 09/11/2022 at 12:50 Approved by: Juan J Rodríguez MD on 09/11/2022 at 12:53
[2022-09-10 15:41] LABS: COVID19 -Nasal RAPID Negative (Negative)
== END ==
PROVIDERS: PCP Family Medicine; Referring Provider Family Medicine; Visit Provider Family Medicine
DX: R06.02 Shortness of breath (principal); R06.00 Dyspnea, unspecified; Z86.73 Personal history of transient ischemic attack (TIA), and cerebral infarction without residual deficits; Z20.822 Contact with and (suspected) exposure to COVID-19
CPT/HCPCS: 78452; 87635; 93017; A9502

== ENCOUNTER → 2023-03-03 11:13 | Outpatient (CLI) | payer MEDICARE, OTHER, SELFPAY ==
[2023-03-03 19:37] LABS: D Dimer 524 ng/ml (<500)
[2023-03-03 20:43] LABS: Cholesterol 202 mg/dL (140-199); HDL Cholesterol 53 mg/dL (40-60); LDL Cholesterol Calculated 101 mg/dL (<100); Triglycerides 239 mg/dL (35-150)
[2023-03-03 20:44] LABS: Troponin I < 0.012 ng/mL (0.01-0.034)
== END ==
PROVIDERS: PCP Family Medicine; Visit Provider Family Medicine
DX: E78.2 Mixed hyperlipidemia (principal); R06.02 Shortness of breath; R06.09 Other forms of dyspnea
CPT/HCPCS: 80061; 84484; 85379

== ENCOUNTER → 2023-06-22 13:03 | Outpatient (CLI) | payer MEDICARE, OTHER, SELFPAY ==
[2023-06-22 18:55] LABS: Add Manual Diff / Slide Review NO; Basophils Absolute Auto 0 /uL (0-100); Basophils Percent Auto 0.6 % (0-2); Eosinophils Absolute Auto 200 /uL (0-450); Eosinophils Percent Auto 3.3 % (2-4); Hematocrit 43.8 % (41-53); Lymphocytes Absolute Auto 1300 /uL (1100-4500); Lymphocytes Percent Auto 18.3 % (25-40); Mean Corpuscular HGB Conc 34.1 % (30-36); Mean Corpuscular Hemoglobin 31.9 PG (26-34); Mean Corpuscular Volume 93.5 fL (80-100); Monocytes Absolute Auto 600 /uL (0-900); Neutrophils Absolute Auto 5000 /uL (1500-7000); Neutrophils Percent Auto 69.8 % (50-75); Platelet Count 242 X10^3/uL (150-400); Red Blood Cell Count 4.68 X10^6/uL (4.5-5.9); Red Cell Distribution Width 12.8 % (11.6-14.8); White Blood Cell Count 7.2 X10^3/uL (4.5-11.0)
[2023-06-22 19:10] LABS: BUN Creatinine Ratio 12.9 (6-22); Blood Urea Nitrogen 12 mg/dL (9-20); Estimated Glomerular Filt Rate > 60 mL/min (>60)
[2023-06-22 19:38] LABS: TSH w/ Reflex to FT4 2.21 uIU/mL (0.47-4.68)
== END ==
PROVIDERS: PCP Family Medicine; Visit Provider Family Medicine
DX: R06.02 Shortness of breath (principal); R00.0 Tachycardia, unspecified
CPT/HCPCS: 82565; 84443; 84520; 85025

== ENCOUNTER 2024-02-12 10:39 | Emergency (ER) | payer MEDICARE, OTHER, SELFPAY ==
--- NOTE | 2024-02-12 17:39 | PC.NURSE ---
[facility]24 ~1999 - see paper downtime charting
== END 2024-02-12 13:55 | disposition home or self-care (01) ==
PROVIDERS: Emergency Provider Emergency Medicine; PCP Family Medicine
DX: L82.1 Other seborrheic keratosis (principal)
CPT/HCPCS: 99282

== ENCOUNTER 2024-02-24 07:43 | Day surgery (SDC) | payer MEDICARE, OTHER, SELFPAY ==
--- NOTE | 2024-02-24 | PATH_ITS ---
[facility] Accession Number: [id number] No. of containers..02 Tissue . 01 Material submitted: . PART A: colon - CECAL POLYP PART B: colon - ASCENDING POLYP . 01 Diagnosis: A. CECUM, POLYPECTOMY: Fragments of tubular adenoma. . B. COLON, ASCENDING, POLYPECTOMY: Tubular adenoma. [facility] 03/01/2024 1538 Local . 01 Electronically signed: . Farooq Will MD, Pathologist NPI- [id number] . 01 Gross description: . A. Received in formalin with two patient identifiers and cecal polyp, are multiple english soft tissue fragments, 1.1 x 0.6 x 0.2 cm. Filtered and submitted entirely in A1. B. Received in formalin with two patient identifiers and ascending polyp are two english soft tissue fragments, 0.3 to 0.4 cm in greatest dimension. Submitted entirely in B1. ([id number]) /V 02/28/2024 1821 Local . 01 Pathologist provided ICD-10: Z12.11, Z86.010, R19.4 . 01 CPT . 567681, 420197 Specimen Comment: A courtesy copy of this report has been sent to [phone] Performed at: [address] [address], [place], [place] [id number] MD Darryn Martin MD Phone: [phone]
[2024-02-24 08:00] VITALS: BP 161/91; PULSE 89; RESP 18; TEMP 36.1; O2SAT 97
[2024-02-24] MEDS: LACTATED RINGERS 1,000 ML 42 ML IV (08:09)
--- NOTE | 2024-02-24 08:11 | P.HP_ITS ---
History of Present Illness History of Present Illness Date Patient Seen: 02/24/24 Time Patient Seen: 08:11 Chief complaint: Dx Colonoscopy w/poss bx Narrative: Silvestre is an 83-year-old man who is here for a colonoscopy. He has had many and he has always had polyps. No family history of colon cancer. [facility] Medical History (Updated 02/12/24 @ 17:42 by Elisabeth Hartley) Colon polyps GERD (gastroesophageal reflux disease) Hypertension Dyslipidemia Surgical History History of back surgery Social History marital status: details: Lives on [facility], cares for disabled . household members: spouse lives independently: Yes Smoking Status: Former smoker alcohol intake: current substance use type: does not use Meds Home Medications and Allergies Home Medications Medication Instructions Recorded Confirmed Type aspirin 81 mg tablet,delayed 81 mg PO DAILY #90 tabs 11/09/21 02/24/24 Rx release famotidine 20 mg tablet 20 mg PO BEDTIME 09/04/22 02/24/24 History losartan 50 mg tablet 50 mg PO BID #180 tabs 06/23/23 02/24/24 Rx rosuvastatin 20 mg tablet (Crestor) 20 mg PO DAILY #90 tabs 10/05/23 02/24/24 Rx amlodipine 5 mg tablet 5 mg PO DAILY #90 tabs 01/07/24 02/24/24 Rx Allergies Allergy/AdvReac Type Severity Reaction Status Date / Time No Known Drug Allergies Allergy Verified 02/24/24 07:56 Exam Vital Signs (past 8 hours): - 02/24/24 08:00 Temperature 96.9 F L Pulse Rate 89 Respiratory Rate 18 Blood Pressure 161/91 H Pulse Oximetry 97 Oxygen Delivery Method Room Air Oxygen Delivery Method Room Air Const General: No acute distress Resp Effort & Inspection: normal respiratory effort Assessment & Plan Assessment and plan (1) History of colonic polyps: Status: Acute Plan We reviewed the risks and benefits of colonoscopy for colon cancer screening and a history of polyps and he would like to proceed.
[2024-02-24 08:48] VITALS: BP 119/73; PULSE 73; RESP 18; TEMP 36.4; O2SAT 96
--- NOTE | 2024-02-24 08:52 | PM.OP.COLON ---
Operative Date/Time/Diagnoses Date of procedure: 02/24/24 Time of procedure: 08:52 Pre-op diagnosis: History of polyps Post-op diagnosis: same Procedure & Clinicians Study performed: Colonoscopy Same procedure as scheduled: Yes Surgeon: Red Rojas Procedure Notes Procedure in detail: Surgeon: Red Rojas MD Anesthesia: Wilda Sullivan CRNA Procedure: The patient was brought to the endoscopy suite, placed in left lateral decubitus position. The patient was connected to monitoring devices. A time-out was performed. Sedation was administered. Once the patient was adequately sedated, a digital rectal exam was performed and was normal. The scope was then inserted and advanced to the cecum where the appendiceal orifice was identified and photographed. The scope was then slowly withdrawn over greater than 6 minutes. The mucosa was thoroughly inspected. There was a 5 mm polyp in the cecum removed with a cold snare. There was a 3 mm polyp in the ascending colon removed with a cold snare. The scope was retroflexed in the rectum. No other abnormalities were seen. The scope was straightened and removed. The patient was awakened and brought to recovery. Scope withdrawal time: 13 minutes Sedation time: 19 minutes EBL: 2 mL Findings: 5 mm polyp in the cecum and 3 mm polyp in the ascending colon Post-procedure Disposition: PACU
[2024-02-24 08:57] VITALS: BP 126/73; PULSE 66; RESP 18; O2SAT 97
[2024-02-24 08:59] VITALS: BP 142/78; PULSE 67; RESP 14; O2SAT 97
== END 2024-02-24 09:14 | disposition home or self-care (01) ==
PROVIDERS: PCP Family Medicine; Referring Provider Surgery; Visit Provider Surgery
PROC: 0DJD8ZZ Inspection of Lower Intestinal Tract, Via Natural or Artificial Opening Endoscopic (ICD-10-PCS; CPT 45378; principal; 2024-02-24 08:45)
DX: Z12.11 Encounter for screening for malignant neoplasm of colon (principal); Z86.010 Personal history of colon polyps; D12.0 Benign neoplasm of cecum; D12.2 Benign neoplasm of ascending colon
CPT/HCPCS: 45385; J2704

== ENCOUNTER → 2024-08-25 08:29 | Outpatient (CLI) | payer MEDICARE, OTHER, SELFPAY ==
[2024-08-25 19:55] LABS: Add Manual Diff / Slide Review NO; Basophils Absolute Auto 100 /uL (0-100); Basophils Percent Auto 0.8 % (0-2); Eosinophils Absolute Auto 400 /uL (0-450); Eosinophils Percent Auto 6.4 % (2-4); Hematocrit 42.9 % (41-53); Hemoglobin 14.5 g/dL (13.5-17.5); Lymphocytes Absolute Auto 1300 /uL (1100-4500); Lymphocytes Percent Auto 20.2 % (25-40); Mean Corpuscular HGB Conc 33.9 % (30-36); Mean Corpuscular Hemoglobin 32.3 PG (26-34); Mean Corpuscular Volume 95.4 fL (80-100); Monocytes Absolute Auto 500 /uL (0-900); Monocytes Percent Auto 8.2 % (3-14); Neutrophils Absolute Auto 4000 /uL (1500-7000); Neutrophils Percent Auto 64.4 % (50-75); Platelet Count 249 X10^3/uL (150-400); Red Blood Cell Count 4.49 X10^6/uL (4.5-5.9); Red Cell Distribution Width 13.3 % (11.6-14.8); White Blood Cell Count 6.2 X10^3/uL (4.5-11.0)
[2024-08-25 20:30] LABS: BUN Creatinine Ratio 13.3 (6-22); Blood Urea Nitrogen 13 mg/dL (9-20); Calcium 8.9 mg/dL (8.4-10.2); Carbon Dioxide 25 mmol/L (22-32); Chloride 107 mmol/L (98-107); Cholesterol 188 mg/dL (140-199); Estimated Glomerular Filt Rate > 60 mL/min (>60); Glucose 107 mg/dL (80-110); HDL Cholesterol 57 mg/dL (40-60); HEMOLYSIS < 15 (0-50); LDL Cholesterol Calculated 107 mg/dL (<100); Potassium 4.3 mmol/L (3.4-5.1); Sodium 137 mmol/L (137-145); Triglycerides 122 mg/dL (35-150)
[2024-08-25 21:01] LABS: Prostate Specific Antigen Scrn 2.11 ng/mL (0.1-4.0)
[2024-08-25 21:12] LABS: TSH w/ Reflex to FT4 3.43 uIU/mL (0.47-4.68)
== END ==
PROVIDERS: PCP Family Medicine; Visit Provider Family Medicine
DX: Z12.5 Encounter for screening for malignant neoplasm of prostate (principal); R00.0 Tachycardia, unspecified; E78.2 Mixed hyperlipidemia; R70.0 Elevated erythrocyte sedimentation rate; R06.09 Other forms of dyspnea; I10 Essential (primary) hypertension
CPT/HCPCS: 80048; 80061; 84443; 85025; G0103